=== PATIENT | male | born 1935 | race Caucasian/White ===

== ENCOUNTER 2018-02-22 19:10 | Inpatient (IN) | payer OTHER ==
[2018-02-22 20:22] LABS: Absolute Lymphocytes (CBC) 1.1 K/uL (0.7-4.9); Absolute Neutrophil 6.7 K/uL (1.8-8.0); Basophils % 0.6 % (0-1.3); Eosinophils % 5.1 % (0-4.4); Hematocrit 17.8 % (39.6-49.0); Lymphocytes % 11.8 % (15.3-44.8); MCH 30.8 pg (27.0-35.0); MCV 92.5 fL (80-100); MPV 8.4 fL (7.6-11.3); Monocytes % 10.8 % (3.3-12.3); RBC Red Blood Cell Count 1.92 M/uL (4.33-5.43)
[2018-02-22] MEDS ORDERED: PANTOPRAZOLE 40 MG INJ ONE ×2 (20:35→23:50)
[2018-02-22 20:37] LABS: Magnesium 2.8 mg/dL (1.8-2.4); Troponin (Emerg Dept Use Only) 0.02 ng/mL (0.0-0.045)
[2018-02-22 20:39] LABS: Potassium 5.1 mmol/L (3.5-5.1)
--- NOTE | 2018-02-22 20:50 | RAD REPORT ---
EXAM DESCRIPTION: RAD - Chest Single View - 02/22/2018 8:35 pm CLINICAL HISTORY: DYSPNEA Chest pain. COMPARISON: Chest Single View dated 06/17/2017; Chest Single View dated 06/16/2017 FINDINGS: Portable technique limits examination quality. Small right pleural effusion is seen. The lungs are grossly clear. Advanced cardiomegaly is present w ith a pacer device noted. No displaced fractures.Sternotomy wires are present.
[2018-02-22 20:53] LABS: Protime INR 7.1
--- NOTE | 2018-02-22 21:01 | ER ---
Nurse's Notes [facility] Name: Becky Vargas Age: 82 yrs Sex: Male : 1935 Arrival Date: 02/22/2018 Time: 19:14 Bed 20 Private MD: PRASHANT BROTHERS Diagnosis: Supratherapeutic INR;GI bleed Presentation: 02/22 19:17 Presenting complaint: Patient states: He has been feeling fatigued for the past week aj1 and a half, and now his stools are dark black. Patient reports he gets tired and short of breath anytime he walks. Transition of care: patient was not received from another setting of care. Onset of symptoms was February 2018. Risk Assessment: Do you want to hurt yourself or someone else? Patient reports no desire to harm self or others. Initial Sepsis Screen: Does the patient meet any 2 criteria? No. Patient's initial sepsis screen is negative. Does the patient have a suspected source of infection? No. Patient's initial sepsis screen is negative. Care prior to arrival: None. 19:17 Method Of Arrival: Ambulatory aj1 19:17 Acuity: JASON 3 aj1 Triage Assessment: 19:21 General: Appears in no apparent distress. comfortable, Behavior is calm, cooperative, aj1 appropriate for age. Pain: Denies pain. Neuro: Level of Consciousness is awake, alert, obeys commands. Cardiovascular: Patient's skin is warm and dry. Respiratory: Reports shortness of breath on exertion Airway is patent Respiratory effort is even, unlabored, Respiratory pattern is regular, symmetrical. Historical: - Allergies: 19:21 Sulfa (Sulfonamide Antibiotics); aj1 - Home Meds: 19:21 [place] Thyroid 120 mg Oral tab daily [Active]; atenolol 50 mg Oral tab 1 tab 2 times aj1 per day [Active]; digoxin 250 mcg Oral tab 1 tab once daily [Active]; Diovan 320 mg Oral tab 1 tab once daily [Active]; Flomax 0.4 mg Oral cp24 1 cap once daily [Active]; furosemide 40 mg Oral tab 1 tab 2 times per day [Active]; magnesium oxide 250 mg Oral tab [Active]; metformin 1,000 mg Oral tab 1 tab 2 times per day [Active]; montelukast 10 mg Oral tab 1 tab once daily [Active]; Mucinex 600 mg Oral Ta12 1 tab every 12 hours [Active]; multivitamin Oral cap [Active]; NAC 600 mg Oral cap [Active]; potassium chloride 20 mEq Oral TbER 1 tab 2 times per day [Active]; Vitamin B-12 2,000 mcg Oral TbER [Active]; Vitamin B-6 100 mg Oral tab [Active]; warfarin 7.5 mg Oral tab 1 tab once daily [Active]; - PMHx: 19:21 Artificial heart valve; Atrial Fib; CVA; Hypertension; Hypothyroidism; Pacemaker; aj1 - Immunization history:: Flu vaccine is not up to date. - Social history:: Smoking status: Patient/guardian denies using tobacco. - Ebola Screening: : Patient denies travel to an Ebola-affected area in the 21 days before illness onset. Screenin:35 Abuse screen: Denies threats or abuse. Nutritional screening: No deficits noted. jb4 Tuberculosis screening: No symptoms or risk factors identified. Fall Risk None identified. Assessment: 19:35 General: Appears in no apparent distress. comfortable, Behavior is calm, cooperative, jb4 appropriate for age. Pain: Denies pain. Neuro: Level of Consciousness is awake, alert, obeys commands, Oriented to person, place, time, situation. Cardiovascular: Heart tones S1 S2 Murmur present Patient's skin is warm and dry. Respiratory: Airway is patent Respiratory effort is even, unlabored, Respiratory pattern is regular, symmetrical, Breath sounds are clear bilaterally. GI: Abdomen is round non-distended, Bowel sounds present X 4 quads. Abd is soft and non tender X 4 quads. : No signs and/or symptoms were reported regarding the genitourinary system. EENT: No signs and/or symptoms were reported regarding the EENT system. Derm: Skin is intact, Skin is pink, warm \T\ dry. Musculoskeletal: Circulation, motion, and sensation intact. 20:30 Reassessment: Patient appears in no apparent distress at this time. Patient is alert, jb4 oriented x 3, equal unlabored respirations, skin warm/dry/pink. Patient denies pain at this time. 21:35 Reassessment: Patient appears in no apparent distress at this time. Patient and/or jb4 family updated on plan of care and expected duration. Pain level reassessed. Patient is alert, oriented x 3, equal unlabored respirations, skin warm/dry/pink. Pt is resting in bed with at the bedside. Informed consent for blood transfusion signed. Patient denies pain at this time. Vital Signs: 19:21 BP 137 / 55; Pulse 60; Resp 18; Temp 97.1(TE); Pulse Ox 100% on R/A; Weight 79.38 kg aj1 (R); Height 5 ft. 6 in. (167.64 cm) (R); Pain 0/10; 20:45 BP 123 / 34; Pulse 60; Resp 18; Pulse Ox 100% on R/A; Pain 0/10; jb4 21:45 BP 139 / 37; Pulse 60; Resp 18; Pulse Ox 100% on R/A; Pain 0/10; jb4 19:21 Body Mass Index 28.25 (79.38 kg, 167.64 cm) aj1 ED Course: 19:14 Patient arrived in ED. al2 19:15 PRASHANT BROTHERS is Private Physician. al2 19:19 Triage completed. aj1 19:21 Arm band placed on Patient placed in an exam room. aj1 19:23 Randall Castillo MD is Attending Physician. ps1 19:42 Patient has correct armband on for positive identification. Placed in gown. Bed in low ak1 position. Call light in reach. Side rails up X 1. Adult w/ patient. electronic gaming device supervisor on. Pulse ox on. NIBP on. 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 ak1 19:55 Missed attempt(s): 22 gauge in right antecubital area. jb4 19:55 Missed attempt(s): 22 gauge in left antecubital area. jb4 20:10 Ankit Logan, YVETTE is Primary Nurse. jb4 20:37 XRAY Chest (1 view) In Process Unspecified. EDMS 20:38 Inserted saline lock: 20 gauge in right antecubital area, using aseptic technique. ao ,using aseptic technique. Ultrasound guided IV Blood collected. 20:59 John Shepherd MD is Hospitalizing Provider. ps1 21:35 Consent for blood and/or blood product transfusion explained by staff, signed by jb4 patient, signed by spouse. 22:45 Patient admitted, IV remains in place. jb4 Administered Medications: 20:49 Drug: ProTONIX 80 mg Route: IVP; Site: right antecubital; jb4 22:02 Follow up: Response: No adverse reaction jb4 22:02 Drug: Vitamin K1 10 mg Route: IM; Site: left deltoid; jb4 22:42 Follow up: Response: No adverse reaction jb4 Point of Care Testing: Guaiac: 19:43 Stool Guaiac: Positive; Stool Hemoccult Control: Pass; ak1 Outcome: 21:00 Decision to Hospitalize by Provider. ps1 22:44 Admitted to Tele accompanied by tech, via wheelchair, room 422, with chart, Report jb4 called to YVETTE Avalos 22:44 Condition: stable 22:44 Instructed on the need for admit, Demonstrated understanding of follow-up care. 22:46 Patient left the ED. 4 Signatures: Dispatcher [employer] EDLorie Pagan RN RN diaz1 Chrissie Hwang RN RN ak1 Daniel Dodd RN RN ao Bryson, James, RN RN jb4 Randall Castillo MD MD ps1 Love, Angelica al2
--- NOTE | 2018-02-22 21:01 | EDPHYS ---
Physician Documentation [facility] Name: Becky Vargas Age: 82 yrs Sex: Male : 1935 Arrival Date: 02/22/2018 Time: 19:14 Bed 20 Private MD: PRASHANT BROTHERS ED Physician Randall Castillo HPI: 02/22 19:31 This 82 yrs old Male presents to ER via Ambulatory with complaints of POSIBLE ps1 BLEEDING ULCER. 19:31 patient presenting with melena. Recent INR 11. Has afib and AVR. Held coumadin for 3 ps1 days. Now has fatigue and dyspnea on exertion. No CP. No Abd pain. Additionally has CHF with pitting edema. . Historical: - Allergies: 19:21 Sulfa (Sulfonamide Antibiotics); aj1 - Home Meds: 19:21 [place] Thyroid 120 mg Oral tab daily [Active]; atenolol 50 mg Oral tab 1 tab 2 times aj1 per day [Active]; digoxin 250 mcg Oral tab 1 tab once daily [Active]; Diovan 320 mg Oral tab 1 tab once daily [Active]; Flomax 0.4 mg Oral cp24 1 cap once daily [Active]; furosemide 40 mg Oral tab 1 tab 2 times per day [Active]; magnesium oxide 250 mg Oral tab [Active]; metformin 1,000 mg Oral tab 1 tab 2 times per day [Active]; montelukast 10 mg Oral tab 1 tab once daily [Active]; Mucinex 600 mg Oral Ta12 1 tab every 12 hours [Active]; multivitamin Oral cap [Active]; NAC 600 mg Oral cap [Active]; potassium chloride 20 mEq Oral TbER 1 tab 2 times per day [Active]; Vitamin B-12 2,000 mcg Oral TbER [Active]; Vitamin B-6 100 mg Oral tab [Active]; warfarin 7.5 mg Oral tab 1 tab once daily [Active]; - PMHx: 19:21 Artificial heart valve; Atrial Fib; CVA; Hypertension; Hypothyroidism; Pacemaker; aj1 - Immunization history:: Flu vaccine is not up to date. - Social history:: Smoking status: Patient/guardian denies using tobacco. - Ebola Screening: : Patient denies travel to an Ebola-affected area in the 21 days before illness onset. ROS: 19:31 Eyes: Negative for injury, pain, redness, and discharge, ENT: Negative for injury, ps1 pain, and discharge, Cardiovascular: Negative for chest pain, palpitations, and edema, Back: Negative for injury and pain, MS/Extremity: Negative for injury and deformity, Skin: Negative for injury, rash, and discoloration, Neuro: Negative for headache, weakness, numbness, tingling, and seizure. 19:31 Constitutional: Positive for fatigue. 19:31 Respiratory: Positive for dyspnea on exertion. 19:31 Abdomen/GI: Positive for black/tarry stool. Exam: 19:31 Constitutional: This is a well developed, well nourished patient who is awake, alert, ps1 and in no acute distress. Head/Face: Normocephalic, atraumatic. Eyes: Pupils equal round and reactive to light, extra-ocular motions intact. Lids and lashes normal. Conjunctiva and sclera are non-icteric and not injected. Chest/axilla: Normal chest wall appearance and motion. Nontender with no deformity. No lesions are appreciated. Cardiovascular: Regular rate and rhythm. No gallops, murmurs, or rubs. Normal PMI, no JVD. No pulse deficits. Respiratory: Lungs have equal breath sounds bilaterally, clear to auscultation and percussion. No rales, rhonchi or wheezes noted. No increased work of breathing, no retractions or nasal flaring. Abdomen/GI: Soft, non-tender, with normal bowel sounds. No distension or tympany. No guarding or rebound. No evidence of tenderness throughout. 19:31 Skin: pallor. Vital Signs: 19:21 BP 137 / 55; Pulse 60; Resp 18; Temp 97.1(TE); Pulse Ox 100% on R/A; Weight 79.38 kg [place] (R); Height 5 ft. 6 in. (167.64 cm) (R); Pain 0/10; 20:45 BP 123 / 34; Pulse 60; Resp 18; Pulse Ox 100% on R/A; Pain 0/10; jb4 21:45 BP 139 / 37; Pulse 60; Resp 18; Pulse Ox 100% on R/A; Pain 0/10; jb4 19:21 Body Mass Index 28.25 (79.38 kg, 167.64 cm) [place] MDM: 20:17 Patient medically screened. ps1 02/22 19:35 Order name: Basic Metabolic Panel; Complete Time: 20:52 ps1 02/22 19:35 Order name: CBC with Diff; Complete Time: 20:56 ps1 02/22 19:35 Order name: Magnesium; Complete Time: 20:52 ps1 02/22 19:35 Order name: NT PRO-BNP; Complete Time: 20:52 ps1 02/22 19:35 Order name: PT-INR; Complete Time: 20:56 ps1 02/22 19:35 Order name: Troponin (emerg Dept Use Only); Complete Time: 20:52 ps1 02/22 19:35 Order name: XRAY Chest (1 view); Complete Time: 20:52 ps1 02/22 19:35 Order name: EKG; Complete Time: 19:35 ps1 02/22 19:35 Order name: Cardiac monitoring; Complete Time: 19:41 ps1 02/22 19:35 Order name: EKG - Nurse/Tech; Complete Time: 19:41 ps1 02/22 20:52 Order name: Type And Screen ak1 02/22 19:35 Order name: IV Saline Lock; Complete Time: 20:43 ps1 02/22 19:35 Order name: Labs collected and sent; Complete Time: 20:11 ps1 02/22 19:35 Order name: O2 Per Protocol; Complete Time: 19:41 ps1 02/22 19:35 Order name: O2 Sat Monitoring; Complete Time: 19:41 ps1 02/22 20:52 Order name: Transfuse; Complete Time: 22:43 ps1 Administered Medications: 20:49 Drug: ProTONIX 80 mg Route: IVP; Site: right antecubital; jb4 22:02 Follow up: Response: No adverse reaction jb4 22:02 Drug: Vitamin K1 10 mg Route: IM; Site: left deltoid; jb4 22:42 Follow up: Response: No adverse reaction jb4 Point of Care Testing: Guaiac: 19:43 Stool Guaiac: Positive; Stool Hemoccult Control: Pass; ak1 Disposition: 02/22/18 21:00 Hospitalization ordered by John Shepherd for Inpatient Admission. Preliminary diagnosis are Supratherapeutic INR, GI bleed. - Bed requested for Telemetry/MedSurg (Inpatient). - Status is Inpatient Admission. jb4 - Condition is Fair. - Problem is an acute exacerbation. - Symptoms are unchanged. UTI on Admission? No Signatures: Dispatcher [employer] EDMS Lorie Kelly RN RN aj1 Salina Wagner RN RN Ankit Rodriguez RN RN jb4 Randall Castillo MD MD ps1 Corrections: (The following items were deleted from the chart) 22:07 21:00 Hospitalization Ordered by John Shepherd MD for Inpatient Admission. Preliminary kl diagnosis is Supratherapeutic INR; GI bleed. Bed requested for Telemetry/MedSurg (Inpatient). Status is Inpatient Admission. Condition is Fair. Problem is an acute exacerbation. Symptoms are unchanged. UTI on Admission? No. ps1 22:46 22:07 02/22/2018 21:00 Hospitalization Ordered by John Shepherd MD for Inpatient jb4 Admission. Preliminary diagnosis is Supratherapeutic INR; GI bleed. Bed requested for Telemetry/MedSurg (Inpatient). Status is Inpatient Admission. Condition is Fair. Problem is an acute exacerbation. Symptoms are unchanged. UTI on Admission? No. kl
[2018-02-22] MEDS ORDERED: VITAMIN K (ADULT) 10 MG/ML IVP SCH (22:00)
--- NOTE | 2018-02-22 22:45 | P.HP ---
Certification for Inpatient Patient admitted to: Inpatient With expected LOS: >2 Midnights Practitioner: I am a practitioner with admitting privileges, knowledge of patient current condition, hospital course, and medical plan of care. Services: Services provided to patient in accordance with Admission requirements found in Title 42 Section 412.3 of the Code of Federal Regulations Patient History Date of Service: 02/22/18 Reason for admission: GI bleed History of Present Illness: Mr Vargas is an 82-year-old gentleman with history of hypertension, aortic valve replacement, mitral valve replacement, both of them mechanical, and oriented with warfarin, history of GIB, came to ED complaining of progressing weakness for the last 10 days, associated with dark stools. The patient denied any chest pain, however he has been which shortness of breath walking short distance. No history of nausea, vomiting or abdominal pain laboratory work remarkable for significant anemia hemoglobin 5.9, INR of elevated at 7.1. The patient is ammonia admitted stable at the moment. Allergies Sulfa (Sulfonamide Antibiotics) Allergy (Verified 06/16/17 12:03) Anaphylaxis Home medications list reviewed: Yes Home Medications: Atenolol [Tenormin] 50 mg PO DAILY 08/02/16 Digoxin [Lanoxin] 250 mcg PO DAILY 08/02/16 Furosemide [Lasix*] 40 mg PO DAILY 08/02/16 Metformin ER [Glucophage ER*] 1,000 mg PO DAILY 08/02/16 Potassium Chloride 20 meq PO DAILY 08/02/16 Tamsulosin [Flomax*] 0.4 mg PO DAILY 08/02/16 Valsartan/Hydrochlorothiazide [Diovan Hct 320-25 mg Tablet] 1 each PO DAILY 06/20 Warfarin Sodium [Coumadin*] 5 mg PO M,W,F 08/02/16 Cyanocobalamin [Vitamin B-12*] 2,000 mcg PO DAILY 06/16/17 Guaifenesin [Mucinex] 600 mg PO BID 06/16/17 Magnesium Oxide [Magnesium] 250 mg PO DAILY 06/16/17 Multivitamin [Daily Multiple Vitamin] 1 tab PO DAILY 06/16/17 Pyridoxine HCl [Vitamin B-6] 100 mg PO DAILY 06/16/17 Thyroid,Pork [[place] Thyroid] 1 tab PO DAILY 06/16/17 Thyroid,Pork [[place] Thyroid] 1 tab PO DAILY 06/16/17 Warfarin Sodium 1 tab PO SEECOM 06/16/17 Amoxicillin [Amoxil Cap*] 1,000 mg PO BID #24 cap 06/25/17 Clarithromycin [Biaxin] 500 mg PO BID #24 tablet 06/25/17 Enoxaparin Sodium [Lovenox 80 MG INJ*] 80 mg SQ Q12HR #1 syr 06/25/17 Pantoprazole [Protonix Tab*] 40 mg PO BIDAC #60 tab 06/25/17 - Past Medical/Surgical History Diabetic: No -: HTn -: Afib -: hypothyroidism -: CVA -: CPAP -: artificial heart valve placed -: pacemaker insertion - Family History Family History: Reviewed- Non-Contributory - Social History Alcohol use: No CD- Drugs: No Caffeine use: No Place of Residence: Home Review of Systems 10-point ROS is otherwise unremarkable Physical Examination - Physical Exam General: Alert, In no apparent distress HEENT: Atraumatic, PERRLA, Mucous membr. moist/pink, EOMI, Sclerae nonicteric Neck: Supple, 2+ carotid pulse no bruit, No LAD, Without JVD or thyroid abnormality Respiratory: Clear to auscultation bilaterally, Normal air movement Cardiovascular: Regular rate/rhythm, Normal S1 S2 Gastrointestinal: Normal bowel sounds, No tenderness Musculoskeletal: No tenderness Integumentary: No rashes Neurological: Normal speech, Normal strength at 5/5 x4 extr, Normal tone, Normal affect Lymphatics: No axilla or inguinal lymphadenopathy - Studies Laboratory Data (last 24 hrs) 02/22/18 19:55: PT 85.5 H, INR 7.10 H* 02/22/18 19:55: WBC 9.3, Hgb 5.9 L*, Hct 17.8 L*, Plt Count 250 02/22/18 19:55: Sodium 144, Potassium 5.1, BUN 61 H, Creatinine 2.30 H, Glucose 160 H, Magnesium 2.8 H Assessment and Plan - Problems (Diagnosis) (1) Melena Current Visit: Yes Status: Acute (2) Acute blood loss anemia Onset Date: 06/18/17 Current Visit: No Status: Acute (3) Acute upper gastrointestinal bleeding Onset Date: 06/18/17 Current Visit: No Status: Acute (4) Coumadin toxicity Onset Date: 06/18/17 Current Visit: No Status: Acute Qualifiers: Encounter type: initial encounter Injury intent: undetermined intent Qualified Code(s): T45.514A - Poisoning by anticoagulants, undetermined, initial encounter - Plan Will admit the patient to the hospital, keep him NPO, start continues infusion PPI with the 1 dose of vitamin K to reverse anticoagulation. Will protect his mechanical valve with subcutaneous Lovenox if INR drops lower than 2.5. Consult GI specialist for evaluation recommendation. He has been ordered to transfuse 1 unit of PRBC. Continue H&H monitor every 6 hr. - Advance Directives Does patient have a Living Will: No Does patient have a Durable POA for Healthcare: No - Code Status/Comfort Care Code Status Assessed: Yes Code Status: Full Code
[2018-02-22] MEDS ORDERED: ONDANSETRON 4 MG/2 ML VIAL IV PRN (22:53)
[2018-02-22] MEDS ORDERED: NA CHLORIDE 0.9% 250 ML ONE ×2 (23:26→23:50)
[2018-02-23 00:11] LABS: Hematocrit 19.7 % (39.6-49.0)
[2018-02-23] MEDS: NA CHLORIDE 0.9% 1,000 ML IV SCH ×2 (00:23→10:09)
[2018-02-23] MEDS: PANTOPRAZOLE INJ 80 MG in NA CHLORIDE 0.9% 250 ML IV SCH ×2 (00:23→10:11)
[2018-02-23 02:05] VITALS: BMI 28.2
[2018-02-23 06:14] LABS: Absolute Lymphocytes (CBC) 1.2 K/uL (0.7-4.9); Absolute Monocytes 0.9 K/uL (0.1-1.3); Absolute Neutrophil 6.1 K/uL (1.8-8.0); Basophils % 0.6 % (0-1.3); Eosinophils % 6.1 % (0-4.4); MCH 31.6 pg (27.0-35.0); MCV 93.8 fL (80-100); MPV 8.4 fL (7.6-11.3); Monocytes % 10.2 % (3.3-12.3); RBC Red Blood Cell Count 2.03 M/uL (4.33-5.43)
[2018-02-23 06:24] LABS: Hematocrit 19.1 % (39.6-49.0)
[2018-02-23 06:31] LABS: Potassium 5.4 mmol/L (3.5-5.1)
[2018-02-23 06:34] LABS: Protime INR 5.78
[2018-02-23] MEDS ORDERED: NA CHLORIDE 0.9% 250 ML IV SCH (07:00)
[2018-02-23 08:49] LABS: Hematocrit 18.7 % (39.6-49.0)
[2018-02-23 09:11] VITALS: O2SAT 97
--- NOTE | 2018-02-23 10:25 | P.PN ---
Subjective Date of Service: 02/23/18 Chief Complaint: GI bleed Subjective: Improving (Patient's condition is stable he has not had any further episodes of melena he has been having GI bleed for the past 4-5 days history of GI bleed in the past and was treated for peptic ulcer dizzy denies any abdominal pain) Review of Systems Unremarkable Physical Examination - Vital Signs Temperature: 97.8 F Blood Pressure: 140/66 Pulse: 60 Respirations: 18 Pulse Ox (%): 100 - Physical Exam General: Alert, Oriented x3 HEENT: Atraumatic Neck: Supple Respiratory: Clear to auscultation bilaterally Cardiovascular: No edema Gastrointestinal: Normal bowel sounds, Soft and benign - Studies Laboratory Data (last 24 hrs) 02/22/18 19:55: PT 85.5 H, INR 7.10 H* 02/22/18 19:55: WBC 9.3, Hgb 5.9 L*, Hct 17.8 L*, Plt Count 250 02/22/18 19:55: Sodium 144, Potassium 5.1, BUN 61 H, Creatinine 2.30 H, Glucose 160 H, Magnesium 2.8 H Assessment & Plan - Problems (Diagnosis) (1) GI bleed Current Visit: Yes Status: Acute Plan: Patient is 82 years of age admitted with GI bleeding melenic stools difficult anemia his hemoglobin is 5.9 patient will be transfused 2 units hemodynamically stable patient is on Coumadin INR elevated plan to transfer him to a tertiary care unit no GI services available here patient denies using nonsteroidals he is significant GI bleeding in June the peptic ulcer disease EGD was done loss which show peptic ulcer disease in the duodenal area, prosthetic aortic valve and requires Coumadin which is on hold right now Qualifiers: GI bleed type/associated pathology: unspecified gastrointestinal hemorrhage type Qualified Code(s): K92.2 - Gastrointestinal hemorrhage, unspecified (2) Hyperkalemia Current Visit: Yes Status: Acute Plan: Patient has acute on chronic renal failure with hyperkalemia 1 dose of Kayexalate continue with IV fluids
--- NOTE | 2018-02-23 10:57 | EKG ---
Test Date: 2018-02-22 Test Time: 19:36:48 Project Engineering Manager: DELFINO MEASUREMENT RESULTS: Intervals: Rate: 60 [place]: QRSD: 188 QT: 450 QTc: 450 [place]: P: [place]: QRS: -52 T: 108 INTERPRETIVE STATEMENTS: Wide QRS rhythm Left axis deviation Nonspecific intraventricular block Abnormal ECG Compared to ECG 06/19/2017 15:11:06 Uncertain supraventricular rhythm now present Left-axis deviation now present Ventricular-paced complex(es) or rhythm no longer present Electronically Signed On 02-23-18 10:55:30 CDT by Liam Hurley
[2018-02-23] MEDS ORDERED: SOD POLYSTYREN SUL 15 GM/60 ML UCUP PO ONE (11:24)
[2018-02-23 17:33] VITALS: BP 152/75; TEMP 98.3
--- NOTE | 2018-02-24 11:36 | P.DS ---
Admission Date: 02/22/18 Discharge Date: 02/24/18 Disposition: TRANSFER TO [facility] Discharge Condition: GOOD Reason for Admission: GI bleed - Problems (1) GI bleed Status: Acute Qualifiers: GI bleed type/associated pathology: unspecified gastrointestinal hemorrhage type Qualified Code(s): K92.2 - Gastrointestinal hemorrhage, unspecified (2) Hyperkalemia Status: Acute Brief History of Present Illness: Patient is 82 years of age admitted with the GI bleed Hospital Course: Patient was anemic and had to be transferred to a tertiary care facility due to lack of GI services at [facility] patient was stable as treated with Kayexalate and blood transfusion was also started hemodynamically stable patient and his were agreeable for transfer to [facility] The time of discharge was alert oriented responsive see progress note Vital Signs/Physical Exam: Temp Pulse Resp BP Pulse Ox 98.3 F 59 18 152/75 H 96 02/23/18 16:00 02/23/18 16:00 02/23/18 16:00 02/23/18 16:00 02/23/18 16:00 Laboratory Data at Discharge: WBC 8.8 K/uL (4.3-10.9) 02/23/18 05:11 Hgb 6.2 g/dL (13.6-17.9) L* 02/23/18 08:39 Hct 18.7 % (39.6-49.0) L* 02/23/18 08:39 Plt Count 191 K/uL (152-406) D 02/23/18 05:11 PT 69.4 SECONDS (9.5-12.5) H 02/23/18 05:11 INR 5.78 H* 02/23/18 05:11 Sodium 146 mmol/L (136-145) H 02/23/18 05:11 Potassium 5.4 mmol/L (3.5-5.1) H 02/23/18 05:11 BUN 59 mg/dL (7-18) H 02/23/18 05:11 Creatinine 2.20 mg/dL (0.55-1.3) H 02/23/18 05:11 Glucose 114 mg/dL (74-106) H 02/23/18 05:11 Magnesium 2.8 mg/dL (1.8-2.4) H 02/22/18 19:55 Home Medications: Atenolol [Tenormin] 50 mg PO BID 08/02/16 Digoxin [Lanoxin] 250 mcg PO DAILY 08/02/16 Furosemide [Lasix*] 1 - 2 tab PO DAILY 08/02/16 Potassium Chloride 1 - 2 tab PO DAILY 08/02/16 Tamsulosin [Flomax*] 0.4 mg PO BEDTIME 08/02/16 Warfarin Sodium [Coumadin*] 5 mg PO SEECOM 08/02/16 Cyanocobalamin [Vitamin B-12*] 2,000 mcg PO DAILY 06/16/17 Multivitamin [Daily Multiple Vitamin] 1 tab PO DAILY 06/16/17 Pyridoxine HCl [Vitamin B-6] 100 mg PO DAILY 06/16/17 Thyroid,[place] [[place] Thyroid] 1 tab PO DAILY 06/16/17 Warfarin Sodium 1 tab PO SEECOM 06/16/17 Acetylcysteine [M-Otwisn-m-Cysteine] 1 - 2 cap PO DAILY 02/23/18 Acetylcysteine [Nac] 1 cap PO DAILY 02/23/18 Montelukast Sodium 10 mg PO DAILY 02/23/18 Valsartan/Hydrochlorothiazide [Diovan Hct 320-12.5 mg Tab] 1 tab PO DAILY Followup: Bryan Benitez MD [ACTIVE - CAN ADMIT] - Carlos Kasper MD [Primary Care Provider] -
== END 2018-02-23 17:34 | disposition short-term general hospital (02) | DRG 378 ==
LOC: ER 19:10 → ERHOLD 21:23 → 4TH 22:10
PROVIDERS: ADMIT Internal Medicine; ATTEND Internal Medicine
PROC: 30233N1 Transfusion of Nonautologous Red Blood Cells into Peripheral Vein, Percutaneous Approach (ICD-10-PCS; principal; 2018-02-23)
DX: K92.1 Melena (principal); D62 Acute posthemorrhagic anemia; E87.5 Hyperkalemia; R79.1 Abnormal coagulation profile; I10 Essential (primary) hypertension; E03.9 Hypothyroidism, unspecified; I48.91 Unspecified atrial fibrillation; T45.515A Adverse effect of anticoagulants, initial encounter; Y92.009 Unspecified place in unspecified non-institutional (private) residence as the place of occurrence of the external cause; Z88.2 Allergy status to sulfonamides; Z86.73 Personal history of transient ischemic attack (TIA), and cerebral infarction without residual deficits; Z95.0 Presence of cardiac pacemaker; Z79.01 Long term (current) use of anticoagulants; Z95.2 Presence of prosthetic heart valve
CPT/HCPCS: 36415; 71045; 80048; 83735; 83880; 84484; 85014; 85018; 85025; 85610; 86850; 86900; 86901; 93005; 94760; 96372; 96374; 99285; C9113; J3430; J7030; P9016

== ENCOUNTER 2019-04-03 15:01 | Emergency (ER) | payer OTHER ==
[2019-04-03 16:08] LABS: Absolute Lymphocytes (CBC) 0.4 K/uL (0.7-4.9); Hematocrit 29.5 % (39.6-49.0); Lymphocytes % 5.5 % (15.3-44.8); MPV 8.9 fL (7.6-11.3); RBC Red Blood Cell Count 3.31 M/uL (4.33-5.43)
[2019-04-03] MEDS ORDERED: FUROSEMIDE 40 MG/4 ML VIAL ONE (16:15)
[2019-04-03 16:20] LABS: Protime INR 2.7
[2019-04-03 16:36] LABS: ALT/SGPT 19 U/L (12-78); AST/SGOT 24 U/L (15-37); Albumin 3.7 g/dL (3.4-5.0); Alkaline Phosphatase 132 U/L (45-117); BUN Blood Urea Nitrogen 90 mg/dL (7-18); Bicarbonate 28 mmol/L (21-32); Bilirubin Direct 0.4 mg/dL (0-0.2); Bilirubin Total 0.8 mg/dL (0.2-1.0); Glucose Level 151 mg/dL (74-106); Magnesium 2.7 mg/dL (1.8-2.4); NT PRO-BNP 7241 pg/mL (<450); Potassium 3.3 mmol/L (3.5-5.1); Protein, Total 7.2 g/dL (6.4-8.2); Sodium Level 139 mmol/L (136-145); Troponin (Emerg Dept Use Only) < 0.02 ng/mL (0.0-0.045)
[2019-04-03 16:37] LABS: Thyroid Stimulating Hormone < 0.005 uIU/mL (0.360-3.740)
--- NOTE | 2019-04-03 16:46 | RAD REPORT ---
EXAM DESCRIPTION: RAD - Chest Single View - 04/03/2019 4:20 pm CLINICAL HISTORY: Chest pain COMPARISON: February 2018 TECHNIQUE: AP portable chest image was obtained 1616 hours . FINDINGS: Chronic interstitial lung disease is present. Interstitial pattern is increased slightly f rom comparison. Pleural effusion has developed in the right lung base. There is right base atelectasi s. Upper lobe vasculature is increased slightly from comparison. Heart and vasculature are normal. No measurable pleural effusion and no pneumothorax. No acute bony abnormality seen. No acute aortic fin dings suspected. IMPRESSION: Small to moderate right pleural effusion new or progressive from February 22 imaging. Right base atelectasis and/ or infiltrate. Stable but enlarged cardiac silhouette.
[2019-04-03] MEDS ORDERED: POTASSIUM 25 MEQ EFFERV TAB ONE (17:51)
[2019-04-03] MEDS ORDERED: KCL 20 MEQ/100 mL IVPB 20 MEQ/100 ML BAG IV ONE (17:51)
--- NOTE | 2019-04-03 17:54 | ER ---
Nurse's Notes [facility] Name: Becky Vargas Age: 83 yrs Sex: Male : 1935 Arrival Date: 04/03/2019 Time: 15:37 Bed 5 Private MD: Diagnosis: Thyrotoxicosis [hyperthyroidism];Unspecified systolic (congestive) heart failure;Edema, unspecified;Fall (on) (from) other stairs and steps Presentation: 04/03 15:05 Method Of Arrival: EMS: [facility] jl7 15:05 Acuity: JASON 2 jl7 15:05 Presenting complaint: EMS states: Pt was walking into doctors office when left knee jl7 gave out and pt fell to right knee, the doctor wanted him to come to the ER because of bilateral lower extremity edema. Pts O2 was 90%, placed on 2 lpm NC and it went up to 96%. Transition of care: patient was not received from another setting of care. Onset of symptoms was April 03, 2019. Risk Assessment: Do you want to hurt yourself or someone else? Patient reports no desire to harm self or others. Initial Sepsis Screen: Does the patient meet any 2 criteria? No. Patient's initial sepsis screen is negative. Does the patient have a suspected source of infection? No. Patient's initial sepsis screen is negative. Care prior to arrival: Oxygen administered. via nasal cannula. Historical: - Allergies: 18:06 Sulfa (Sulfonamide Antibiotics); jl7 - PMHx: 18:06 Artificial heart valve; Atrial Fib; CVA; Hypothyroidism; Pacemaker; Hypertension; jl7 - Immunization history:: Adult Immunizations unknown. - Social history:: Smoking status: Patient/guardian denies using tobacco. - Ebola Screening: : No symptoms or risks identified at this time. Screenin:06 Abuse screen: Denies threats or abuse. Denies injuries from another. Nutritional jl7 screening: No deficits noted. Tuberculosis screening: No symptoms or risk factors identified. Fall Risk IV access (20 points). Total Heller Fall Scale indicates No Risk (0-24 pts). Assessment: 15:05 General: See paper charting. jl7 18:06 Reassessment: Pt sitting in bed, at bedside, updated on POC, denies discomfort at jl7 this time. 19:27 General: Appears in no apparent distress. comfortable, Behavior is calm, cooperative, rr5 appropriate for age. Pain: Complains of pain in right leg and left leg Pain does not radiate. Pain currently is 1 out of 10 on a pain scale. Quality of pain is described as aching, Pain began suddenly, gradually, Is intermittent. Neuro: Level of Consciousness is awake, alert, obeys commands, Oriented to person, place, time, situation, Appropriate for age. Cardiovascular: Capillary refill < 3 seconds Patient's skin is warm and dry. Edema lower extremities and redness noted. Respiratory: Airway is patent Respiratory effort is even, unlabored, Respiratory pattern is regular, symmetrical. GI: No signs and/or symptoms were reported involving the gastrointestinal system. : [place] in place. EENT: No signs and/or symptoms were reported regarding the EENT system. Derm: Skin is fragile, is thin, swelling and redness noted at lower extremities. Skin temperature is warm Decubitus located on bilateral sacrum gluteal area approximately 2.6 cm to 7.5 cm is stage II has erythematous edges Reports pressure ulcer at sacral area. Musculoskeletal: Circulation, motion, and sensation intact. Capillary refill < 3 seconds, Swelling present in right leg and left leg. 19:50 Reassessment: report given to anais staff nurse from [facility] over the phone. rr5 Vital Signs: 18:06 BP 157 / 55; Pulse 60; Resp 19 S; Pulse Ox 98% on 2 lpm NC; jl7 19:10 BP 143 / 54; Pulse 60; Resp 20; Temp 97.8; Pulse Ox 97% on 2 lpm NC; Pain 1/10; rr5 20:25 BP 121 / 65; Pulse 61; Resp 18; Pulse Ox 98% on 2 lpm NC; rr5 ED Course: 15:30 Initial lab(s) drawn, by hi, sent to lab. Inserted saline lock: 22 gauge in left hand, jl7 using aseptic technique. Blood collected. 15:37 Patient arrived in ED. iw 15:39 Shobha Ventura [facility]-C [facility]. snw 15:39 Pierce Dorsey MD is Attending Physician. snw 15:57 EKG done, by radiocommunications technician. reviewed by Pierce Dorsey MD. sm3 16:34 XRAY Chest (1 view) In Process Unspecified. EDMS 18:01 Usman Cleveland, RN is Primary Nurse. jl7 18:03 Triage completed. jl7 18:06 Arm band placed on right wrist. jl7 18:06 Patient has correct armband on for positive identification. Placed in gown. Bed in low jl7 position. Call light in reach. Side rails up X2. school transportation supervisor on. Pulse ox on. NIBP on. Warm blanket given. 20:25 No provider procedures requiring assistance completed. Patient admitted, IV remains in rr5 place. intact, No redness/swelling at site. Administered Medications: 16:10 Drug: Lasix 40 mg Route: IVP; Site: left hand; jl7 18:53 Follow up: Response: No adverse reaction jl7 18:00 Drug: Potassium Chloride 20 mEq Route: IV; Rate: calculated rate; Site: left hand; jl7 20:00 Follow up: Response: No adverse reaction; IV Status: Completed infusion; IV Intake: rr5 100ml 18:00 Drug: Potassium Effervescent Tablet 50 mEq Route: PO; jl7 19:10 Follow up: Response: No adverse reaction rr5 Intake: 20:00 IV: 100ml; Total: 100ml. rr5 Outcome: 17:53 ER care complete, transfer ordered by MD. snw 20:25 Transferred by ground EMS to [facility], Transfer form completed. rr5 20:25 Condition: stable 20:25 Instructed on the need for transfer. 20:30 Patient left the ED. rr5 Signatures: Dispatcher [employer] EDAR Shobha Ventura, SHEET METAL JOURNEYMAN-C SHEET METAL JOURNEYMAN-Csnw Eli Solis RN RN Usman Cleveland, YVETTE CRAWFORD jl7 Tammy Cardozo 3 Joshua Spears RN RN rr5 Corrections: (The following items were deleted from the chart) 18:05 18:01 Presenting complaint: EMS states: Pt was walking into doctors office when left jl7 knee gave out and pt fell to right knee, the doctor wanted him to come to the ER because of bilateral lower extremity edema. Pts O2 was 90%, placed on 2 lpm NC and it went up to 96% jl7 18:05 18:01 Transition of care: patient was not received from another setting of care. 7 jl7 18:05 18:01 Onset of symptoms was April 03, 2019 Babar morales7 18:05 18:01 Risk Assessment: Do you want to hurt yourself or someone else? Patient reports no [facility] desire to harm self or others. 7 : 18:01 Initial Sepsis Screen: Does the patient meet any 2 criteria? No. Patient's 7 initial sepsis screen is negative. Does the patient have a suspected source of infection? No. Patient's initial sepsis screen is negative. jl7 : 18:01 Care prior to arrival: Oxygen administered. via nasal cannula, [facility] jl7 18: 18:01 Method Of Arrival: EMS: [facility] 7 jl7 18:05 18:01 Acuity: JASON 2 7 jl7
--- NOTE | 2019-04-03 17:55 | EDPHYS ---
Physician Documentation [facility] [place], [place] Name: Becky Vargas Age: 83 yrs Sex: Male : 1935 Arrival Date: 04/03/2019 Time: 15:37 Bed 5 Private MD: ED Physician Pierce Dorsey HPI: 04/03 17:50 This 83 yrs old Male presents to ER via Unassigned with complaints of tripped snw and fell, lower ext edema. 17:50 Details of fall: The patient fell from an upright position. Onset: The symptoms/episode snw began/occurred suddenly, just prior to arrival. Associated injuries: The patient sustained right knee, abrasion. Severity of symptoms: At their worst the symptoms were moderate. It is unknown whether or not the patient has had similar symptoms in the past. admitted at [facility] last week. Went to see Dr. Mendoza today for lower ext edema, tripped and fell on the way in to his office. Historical: - Allergies: 18:06 Sulfa (Sulfonamide Antibiotics); jl7 - PMHx: 18:06 Artificial heart valve; Atrial Fib; CVA; Hypothyroidism; Pacemaker; Hypertension; jl7 - Immunization history:: Adult Immunizations unknown. - Social history:: Smoking status: Patient/guardian denies using tobacco. - Ebola Screening: : No symptoms or risks identified at this time. ROS: 15:50 Constitutional: Negative for fever, chills, and weight loss, Eyes: Negative for injury, snw pain, redness, and discharge, ENT: Negative for injury, pain, and discharge, Neck: Negative for injury, pain, and swelling, Cardiovascular: Negative for chest pain, palpitations, and edema. 15:50 Abdomen/GI: Negative for abdominal pain, nausea, vomiting, diarrhea, and constipation, Back: Negative for injury and pain, : Negative for injury, bleeding, discharge, and swelling. 15:50 Neuro: Negative for headache, weakness, numbness, tingling, and seizure, Psych: Negative for depression, anxiety, suicide ideation, homicidal ideation, and hallucinations. 15:50 Respiratory: Positive for shortness of breath, on exertion. 15:50 MS/extremity: Positive for swelling, tenderness, of the lower extremities. 15:50 Skin: Positive for abrasion(s), of the right knee. Exam: 15:40 Head/Face: Normocephalic, atraumatic. Eyes: Pupils equal round and reactive to light, snw extra-ocular motions intact. Lids and lashes normal. Conjunctiva and sclera are non-icteric and not injected. Cornea within normal limits. Periorbital areas with no swelling, redness, or edema. ENT: Nares patent. No nasal discharge, no septal abnormalities noted. Tympanic membranes are normal and external auditory canals are clear. Oropharynx with no redness, swelling, or masses, exudates, or evidence of obstruction, uvula midline. Mucous membranes moist. Neck: Trachea midline, no thyromegaly or masses palpated, and no cervical lymphadenopathy. Supple, full range of motion without nuchal rigidity, or vertebral point tenderness. No Meningismus. Chest/axilla: Normal chest wall appearance and motion. Nontender with no deformity. No lesions are appreciated. 15:40 Abdomen/GI: Soft, non-tender, with normal bowel sounds. No distension or tympany. No guarding or rebound. No evidence of tenderness throughout. Back: No spinal tenderness. No costovertebral tenderness. Full range of motion. Neuro: Awake and alert, GCS 15, oriented to person, place, time, and situation. Cranial nerves II-XII grossly intact. Motor strength 5/5 in all extremities. Sensory grossly intact. Cerebellar exam normal. Normal gait. Psych: Awake, alert, with orientation to person, place and time. Behavior, mood, and affect are within normal limits. 15:40 Constitutional: The patient appears alert, awake, obese, uncomfortable. 15:40 Cardiovascular: Rate: normal, Rhythm: regular, Heart sounds: normal, Edema: 4+ edema to level of left midcalf, left ankle, left foot, right midcalf, right ankle and right foot. 15:40 Respiratory: the patient does not display signs of respiratory distress, Respirations: shallow respirations, that is mild, tachypnea, that is mild, Breath sounds: rhonchi, that are moderate, + upper airway congestion. 15:40 Skin: Appearance: normal except for affected area, injury, abrasion(s), very small abrasion noted, of the right knee, pitting, reddened, scaly lower extremities. 15:40 Neuro: Exam negative for acute changes. 15:40 Psych: Behavior/mood is pleasant, cooperative. Vital Signs: 18:06 BP 157 / 55; Pulse 60; Resp 19 S; Pulse Ox 98% on 2 lpm NC; jl7 19:10 BP 143 / 54; Pulse 60; Resp 20; Temp 97.8; Pulse Ox 97% on 2 lpm NC; Pain 1/10; rr5 20:25 BP 121 / 65; Pulse 61; Resp 18; Pulse Ox 98% on 2 lpm NC; rr5 MDM: 15:40 Patient medically screened. snw 17:52 Data reviewed: vital signs, nurses notes. Data interpreted: Pulse oximetry: on room air snw is 89 %. Interpretation: hypoxia. Plan: O2 by NC applied. Counseling: I had a detailed discussion with the patient and/or guardian regarding: the historical points, exam findings, and any diagnostic results supporting the discharge/admit diagnosis, lab results, radiology results, the need to transfer to another facility, for higher level of care, [facility] does not immediately have the required specialist. ED course: initiate transfer to [facility]. 19:03 Physician consultation: Dr. Lebron Colon was called at 19:03, was contacted at 19:03, snw regarding regarding transfer, to [facility]. Dr. Colon kindly accepts pt in transfer. 04/03 15:57 Order name: Basic Metabolic Panel; Complete Time: 17:50 04/03 15:57 Order name: CBC with Diff; Complete Time: 16:36 04/03 15:57 Order name: LFT's; Complete Time: 17:50 04/03 15:57 Order name: Magnesium; Complete Time: 17:50 04/03 15:57 Order name: NT PRO-BNP; Complete Time: 17:50 04/03 15:57 Order name: PT-INR; Complete Time: 16:36 04/03 15:57 Order name: Troponin (emerg Dept Use Only); Complete Time: 17:50 04/03 15:57 Order name: XRAY Chest (1 view); Complete Time: 17:50 04/03 15:57 Order name: EKG; Complete Time: 16:33 04/03 15:57 Order name: TSH; Complete Time: 17:50 04/03 17:48 Order name: Urine Dipstick-Ancillary; Complete Time: 18:59 EDGA 04/03 15:57 Order name: Cardiac monitoring; Complete Time: 18:10 04/03 15:57 Order name: EKG - Nurse/Tech; Complete Time: 18:10 04/03 15:57 Order name: IV Saline Lock; Complete Time: 18:09 04/03 15:57 Order name: Labs collected and sent; Complete Time: 18:09 04/03 15:57 Order name: O2 Per Protocol; Complete Time: 18: 04/03 15:57 Order name: O2 Sat Monitoring; Complete Time: 18:09 04/03 15:57 Order name: [place]; Complete Time: 18:10 Administered Medications: 16:10 Drug: Lasix 40 mg Route: IVP; Site: left hand; [facility] 18:53 Follow up: Response: No adverse reaction [facility] 18:00 Drug: Potassium Chloride 20 mEq Route: IV; Rate: calculated rate; Site: left hand; [facility] 20:00 Follow up: Response: No adverse reaction; IV Status: Completed infusion; IV Intake: rr5 100ml 18:00 Drug: Potassium Effervescent Tablet 50 mEq Route: PO; 7 19:10 Follow up: Response: No adverse reaction rr5 Disposition: 04/04 09:25 Co-signature as Attending Physician, Pierce Dorsey MD I agree with the assessment and kdr plan of care. Disposition: 04/03/19 17:53 Transfer ordered to [facility]. Diagnosis are Thyrotoxicosis [hyperthyroidism], Unspecified systolic (congestive) heart failure, Edema, unspecified, Fall (on) (from) other stairs and steps. - Reason for transfer: Patient request. - Accepting physician is Dr. Melida Colon. - Condition is Fair. - Problem is an acute exacerbation. - Symptoms have worsened. Signatures: Dispatcher [facility] Pierce Dorsey MD MD kdr Therrien, Shelly, FNP-Sudhir SUCTION DREDGE DUMPING SUPERVISOR-Eli Dozier, RN RN iw Usman Cleveland, RN RN jl7 Joshua Spears, RN RN rr5 Corrections: (The following items were deleted from the chart) 04/03 19:04 17:53 04/03/2019 17:53 Transfer ordered to [facility]. Diagnosis is snw Thyrotoxicosis [hyperthyroidism]; Unspecified systolic (congestive) heart failure; Edema, unspecified; Fall (on) (from) other stairs and steps. Reason for transfer: Higher level of care. Accepting physician is [facility]. Condition is Fair. Problem is an acute exacerbation. Symptoms have worsened. snw 20:30 19:04 04/03/2019 17:53 Transfer ordered to [facility]. Diagnosis is rr5 Thyrotoxicosis [hyperthyroidism]; Unspecified systolic (congestive) heart failure; Edema, unspecified; Fall (on) (from) other stairs and steps. Reason for transfer: Patient request. Accepting physician is Dr. Melida Colon. Condition is Fair. Problem is an acute exacerbation. Symptoms have worsened. snw
[2019-04-03 18:55] LABS: Urine Blood NEGATIVE (NEG); Urine Glucose NEGATIVE (NEG); Urine Protein NEGATIVE (NEG)
[2019-04-03 21:41] VITALS: BP 143/54; TEMP 97.8; O2SAT 97
--- NOTE | 2019-04-04 07:45 | EKG ---
Test Date: 2019-04-03 Test Time: 15:09:58 Top And Trim Worker: SALLY MEASUREMENT RESULTS: Intervals: Rate: 60 ND: QRSD: 198 QT: 520 QTc: 520 Mcgee: P: ND: QRS: -65 T: 102 INTERPRETIVE STATEMENTS: Rhythm consistent with VVI pacing underlying atrial rhythm not certain Abnormal ECG Compared to ECG 02/22/2018 19:36:48 no significant change from previous ECG Electronically Signed On 04-04-19 07:44:57 CDT by Eleazar Shore
== END 2019-04-03 20:30 | disposition short-term general hospital (02) ==
LOC: ER 15:01
DX: I50.20 Unspecified systolic (congestive) heart failure (principal); R60.9 Edema, unspecified; E05.90 Thyrotoxicosis, unspecified without thyrotoxic crisis or storm; W18.30XA Fall on same level, unspecified, initial encounter; Y93.9 Activity, unspecified; Y92.9 Unspecified place or not applicable; Z88.2 Allergy status to sulfonamides
CPT/HCPCS: 96365; 93005; 85025; 80048; 36415; 83735; 85610; 80076; 84443; 81003; 84484; 83880; 71045; 96375; 99285; 96366; J1940